=== PATIENT | female | born 1985 | race Caucasian/White ===

== ENCOUNTER 2020-03-06 05:50 | Emergency (ER) | payer SELFPAY ==
[~2020-03-06] VITALS: Ht 157.5 cm; Wt 93.0 kg
--- NOTE | 2020-03-06 06:08 | NUR ---
CC OF NAUSEA, CHAWLA, BODY ACHES, RUNNY NOSE X 1 WEEK. HERE FOR SAME SYMPTOMS. PT STATES THEY WORK TOGETHER AND HER WORK HAS HAD + EXPOSURE TO COVID. PT HAS NOT TESTED FOR COVID
[2020-03-06] MEDS ORDERED: ONDANSETRON ODT 4 MG ONE (06:24)
[2020-03-06] MEDS ORDERED: ONDANSETRON ODT 4 MG PO ONE (06:30)
--- NOTE | 2020-03-06 06:58 | NUR ---
report given to gina dunlap
[2020-03-06 07:05] LABS: BASOPHILS % (AUTO) 0 % (0-1); EOSINOPHILS % (AUTO) 3 % (1-7); LYMPHOCYTES % (AUTO) 35 % (22-44); MEAN CORPUSCULAR HEMOGLOBIN 30.2 pg (27.0-34.8); MEAN CORPUSCULAR HGB CONC 34.3 g/dL (32.4-35.8); MEAN PLATELET VOLUME 9.2 fL (7.4-10.4); MONOCYTES % (AUTO) 7 % (2-9); NEUTROPHILS % (AUTO) 55 % (42-75); PLATELET COUNT 224 x10^3/uL (130-400); RED BLOOD COUNT 4.68 x10^6/uL (3.82-5.3); RED CELL DISTRIBUTION WIDTH 13.6 % (9.6-15.2)
[2020-03-06 07:06] LABS: MD NO
[2020-03-06 07:16] LABS: ALBUMIN 3.8 g/dL (3.4-5.0); ANION GAP 7 mmol/L (5-15); CALCIUM 9.2 mg/dL (8.5-10.1); CHLORIDE 107 mmol/L (98-107); CREATININE 0.72 mg/dL (0.55-1.02)
--- NOTE | 2020-03-06 07:28 | NUR ---
PT RESTING IN BED. VSS. NO ACUTE DISTRESS NOTED.
[2020-03-06 08:25] VITALS: BP 108/92
== END 2020-03-06 08:27 | disposition home or self-care (01) ==
LOC: ED 07:18
DX: J12.9 Viral pneumonia, unspecified (principal); Z20.828 Contact with and (suspected) exposure to other viral communicable diseases; B34.9 Viral infection, unspecified; R73.9 Hyperglycemia, unspecified
CPT/HCPCS: 36415; 71045; 80048; 82040; 84703; 85025; 87635; 99284; Q0162

== ENCOUNTER 2020-05-23 10:13 | Day surgery (SDC) | payer OTHER ==
[~2020-05-23] VITALS: Ht 157.5 cm; Wt 89.8 kg
[~2020-05-23 10:13] MED LIST: ACET-1600 PO; OXYC5CAP2 PO
[2020-05-23 10:50] VITALS: BP 122/85
[2020-05-23] MEDS ORDERED: CHLORHEXIDINE 15 ML UDC MM ONE (11:00)
[2020-05-23] MEDS ORDERED: LACTATED RINGERS 1,000 ML IV SCH (11:00)
[2020-05-23 11:19] LABS: ALANINE AMINOTRANSFERASE 33 U/L (12-78); ALBUMIN 3.9 g/dL (3.4-5.0); ANION GAP 8 mmol/L (5-15); CALCIUM 9.2 mg/dL (8.5-10.1); CHLORIDE 105 mmol/L (98-107); CREATININE 0.72 mg/dL (0.55-1.02)
[2020-05-23 11:23] LABS: ALKALINE PHOSPHATASE 82 U/L (45-117); BILIRUBIN,TOTAL 0.3 mg/dL (0.2-1.0); TOTAL PROTEIN 8.1 g/dL (6.4-8.2)
[2020-05-23] MEDS ORDERED: MIDAZOLAM 1 MG/ML, 2ML ONE (14:16)
[2020-05-23] MEDS ORDERED: FENTANYL PF 250 MCG/5ML ONE (14:16)
[2020-05-23] MEDS ORDERED: DEXAMETHASONE 4 MG/ML, 1ML ONE (14:17)
[2020-05-23] MEDS ORDERED: PROPOFOL 10 MG/ML, 20ML ONE (14:17)
[2020-05-23] MEDS ORDERED: ONDANSETRON 2MG/ML, 2ML ONE (14:17)
[2020-05-23] MEDS ORDERED: CEFAZOLIN 1,000 MG ONE (14:17)
[2020-05-23] MEDS ORDERED: BUPIVACAINE/PF 0.5% INFIL ONE (16:27)
[2020-05-23] MEDS ORDERED: EPINEPHRINE 1 MG/ML, 1ML INFIL ONE (16:28)
[2020-05-23] MEDS ORDERED: HALOPERIDOL 5 MG/ML IV PRN (16:30)
[2020-05-23] MEDS ORDERED: ACETAMINOPHEN 325 MG TABLET PO PRN ×2 (16:30→17:00)
[2020-05-23] MEDS ORDERED: LABETALOL 5MG/ML, 20ML IV PRN (16:30)
[2020-05-23] MEDS ORDERED: PROMETHAZINE 25 MG/ML, 1ML IVPush PRN (16:30)
[2020-05-23] MEDS ORDERED: hydrALAzine 20 MG/ML, 1ML IV PRN (16:30)
[2020-05-23] MEDS ORDERED: morphine SULFATE 10 MG/ML, 1ML IVPush PRN ×2 (16:30→17:00)
[2020-05-23] MEDS ORDERED: MEPERIDINE/PF 25MG/0.5ML IVPush PRN (16:30)
[2020-05-23] MEDS ORDERED: HYDROmorphone 1 MG/ML, 1ML INJ IVPush PRN (16:30)
[2020-05-23] MEDS ORDERED: OXYcodone 5 MG/5 ML ORAL.SOL UDC PO PRN ×2 (16:30→17:00)
[2020-05-23] MEDS ORDERED: ONDANSETRON 2MG/ML, 2ML IVPush PRN (17:00)
[2020-05-23] MEDS ORDERED: KETOROLAC 30 MG/1 ML IVPush SCH (17:00)
[2020-05-23] MEDS ORDERED: PROMETHAZINE 25 MG/ML, 1ML IM PRN (17:00)
[2020-05-23] MEDS ORDERED: BUPIVACAINE/PF 0.5% ONE (17:02)
[2020-05-23] MEDS ORDERED: EPINEPHRINE 1 MG/ML, 1ML ONE (17:02)
[2020-05-23] MEDS ORDERED: FENTANYL PF 100 MCG/2ML ONE (17:10)
[2020-05-23] MEDS: FENTANYL PF 100 MCG/2ML IV PRN ×3 (17:13→17:42)
[2020-05-23] MEDS ORDERED: OXYcodone 5 MG/5 ML ORAL.SOL UDC ONE (17:16)
[2020-05-23] MEDS ORDERED: hydrALAzine 20 MG/ML, 1ML ONE (17:45)
== END 2020-05-23 19:05 | disposition home or self-care (01) ==
LOC: OUT 10:13 → EDSTATUS 15:00 → OUT 19:05
PROVIDERS: ATTEND Orthopaedic Surgery
DX: S82.62XA Displaced fracture of lateral malleolus of left fibula, initial encounter for closed fracture (principal); E11.65 Type 2 diabetes mellitus with hyperglycemia; Z79.891 Long term (current) use of opiate analgesic; Z79.899 Other long term (current) drug therapy; Z82.61 Family history of arthritis; W01.0XXA Fall on same level from slipping, tripping and stumbling without subsequent striking against object, initial encounter; Y93.89 Activity, other specified; Y92.481 Parking lot as the place of occurrence of the external cause; Y99.0 Civilian activity done for income or pay
CPT/HCPCS: 27792; 73600; 80053; 82962; 84703; C1713; J0171; J0360; J0690; J1100; J2250; J2405; J2704; J3010; J7120; 76000